=== PATIENT | male | born 2000 | race Caucasian/White ===

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

== ENCOUNTER 2021-01-27 08:32 | Emergency (ER) | payer OTHER, SELFPAY ==
[2021-01-27 08:40] VITALS: BP 127/63; PULSE 56; RESP 16; TEMP 36; O2SAT 99
[2021-01-27 08:42] VITALS: BP 127/63; PULSE 56; RESP 16; TEMP 36; O2SAT 99
--- NOTE | 2021-01-27 08:46 | ED.ABDPAIN ---
HPI - Abdominal Pain General Chief Complaint: Nausea/Vomiting/Diarrhea Stated Complaint: abd pain Source: patient and RN notes reviewed Limitations: no limitations History of Present Illness HPI narrative: The patient, a nondrinker/occ smoker [inc marijuana ]who has a history of irritable bowel, presents with vomiting with blood. Patient states his GI history is remarkable having seen order entry clerk in the past for irritable bowel, with noncontributory CT scan 2 years ago [generally only diverticulosis]. He was treated with elimination diet, ondansetron and omeprazole which he ran out of. Today, after uneventful night, he has a shorter 1 day history of bloody emesis x2 that was blood-tinged with streaks after vomiting forcefully. He had concurrent associated diarrhea x1, low epigastric cramps; no fever sick family, stool changes[darker/cardroom drawing runner], presyncope/lightheadedness, rectal bleeding. Patient has been vaccinated for Covid, no loss of taste/smell, cough, S OB, wheezing/sneezing, CP; he declines Covid testing, hospital referral this morning. So advised to see PMD in follow-up Related Data Home Medications Medication Instructions Recorded Confirmed cetirizine [Zyrtec] 10 mg PO DAILY 01/27/21 01/27/21 Allergies Allergy/AdvReac Type Severity Reaction Status Date / Time No Known Allergies Allergy Unknown Verified 09/09/19 08:13 Review of Systems Review of Systems: Narrative: General/Constitutional: No weight loss,fever Eyes: N0: Redness,discharge Ears/Nose/Throat: No: Epistaxis,ear discharge Respiratory: Denies: Hemoptysis Gastrointestinal: Reports vomiting; Bleeding-rectal Skin: No Lumps, eruption Neurologic: No Focal Weakness,Sz Hematologic: Denies: Petechiae/Purpura Psychiatric: No: Suicida ideationl All Other Systems: Reviewed and Negative [facility] Past Medical History Medical History (Updated 01/27/21 @ 09:12 by Torres Siu MD) Asthma sport induced History of shoulder fracture Hx of concussion Hx of fracture of wrist Social History Social History Gender identity (if verbalized by the patient): Male Comments At time of signature, agree with nursing past medical, surgical, social and family history. There is no relevant family history pertinent to the presenting complaint Exam Narrative: Exam Narrative: General Appearance: Well appearing, No distress EYE: PERRLA, Conjunctiva clear Ears: External ear normal Nose: Normal nose Mouth/Throat: Normal appearing, Normal lips Neck: Supple Respiratory: Airway patent, No respiratory distress Cardiovascular: RRR Abdomen: Soft, minimally tender epigastrium, No massess, No organomegaly (no rebound/ surgical signs), Hyperactive bowel sounds Musculoskeletal: Full ROM Skin: Warm, Dry Neurological: A&O x3, CN II-X intact Psychiatric: Normal mood, Normal affect Course Vital Signs Vital signs: Vital Signs Temperature 96.8 F L 01/27/21 08:40 Pulse Rate 56 L 01/27/21 08:40 Respiratory Rate 16 01/27/21 08:40 Blood Pressure 127/63 01/27/21 08:40 Pulse Oximetry 99 01/27/21 08:40 Temperature 96.8 F L 01/27/21 08:42 Pulse Rate 56 L 01/27/21 08:42 Respiratory Rate 16 01/27/21 08:42 Blood Pressure 127/63 01/27/21 08:42 Pulse Oximetry 99 01/27/21 08:42 Discharge Plan Discharge Clinical Impression: Symptom of blood in vomit Patient Disposition: Home, Self-Care Condition: Stable Instructions: Hematemesis (ED) Additional Instructions: Advised to go to higher-level care facility to higher level testing if not improved , because for early diagnosis of serious problems [ulcer, appendicitis, etc], clear specific symptoms do not develope until later Prescriptions: New ondansetron HCl [Zofran] 4 mg tablet 4 mg PO BID PRN (Reason: nausea and vomiting) Qty: 10 RF: 3 omeprazole 20 mg capsule,delayed release(DR/EC) 20 mg PO BID Qty:
== END 2021-01-27 09:12 | disposition home or self-care (01) ==
PROVIDERS: Emergency Provider Emergency Medicine
DX: K92.0 Hematemesis (principal); J45.990 Exercise induced bronchospasm
CPT/HCPCS: 99213; G0463

== ENCOUNTER 2024-04-20 17:07 | Emergency (ER) | payer BC, SELFPAY ==
[2024-04-20 17:23] VITALS: BP 141/81; PULSE 68; RESP 16; TEMP 36.8; O2SAT 100
--- NOTE | 2024-04-20 17:57 | ED.GENADULT ---
HPI - General Adult General Chief complaint: Upper Respiratory Infection Stated complaint: vomiting and sinus issues Time Seen by Provider: 04/20/24 17:57 Source: patient Mode of arrival: ambulatory Limitations: no limitations History of Present Illness HPI narrative: 23-year-old male patient presents to the [facility] with complaints of cold symptoms that about Monday this week. Patient states the symptoms got significantly worse last night with body aches, chills and fevers. Patient states he has been having some congestion runny nose, cough. Patient does vape. And patient states this morning he was vomiting but mostly vomiting up mucus. Denies any chest pain or shortness of breath at this time. Denies any abdominal pain. Related Data Home Medications Medication Instructions Recorded Confirmed cetirizine 10 mg tablet (Zyrtec) 10 mg PO DAILY 01/27/21 04/20/24 Allergies Allergy/AdvReac Type Severity Reaction Status Date / Time No Known Allergies Allergy Unknown Verified 04/20/24 17:31 Review of Systems Review of Systems: CONSTITUTIONAL: Positive fever, chills, body aches and sweats. EYES: Denies visual changes, redness, or discharge. ENT: positive rhinorrhea, congestion, denies sore throat, denies otalgia. CARDIOVASCULAR: Denies chest pain, palpitations, or edema. RESPIRATORY: positive cough or dyspnea. GASTROINTESTINAL: Denies abdominal pain, nausea, vomiting, or diarrhea. GENITOURINARY: Denies dysuria or hematuria. SKIN: Denies rash or itching. MUSCULOSKELETAL: Denies back pain, joint pain, or myalgia. NEUROLOGIC: Denies headache, numbness, or weakness. PSYCHIATRIC: Denies anxiety or depression. [facility] Past Medical History Medical History (Updated 04/20/24 @ 18:08 by JIGAR Waggoner) Asthma sport induced History of shoulder fracture Hx of concussion Hx of fracture of wrist Social History Social History Gender identity (if verbalized by the patient): Male Exam Narrative: GENERAL: Well-appearing, well-nourished, and in no acute distress. HEAD: Normocephalic, atraumatic. EYES: PERRLA and EOMI. ENT: Nares with erythema edema noted bilaterally, no rhinorrhea or epistaxis. Mucous membranes moist. posterior pharynx with no erythema, tonsillar enlargement, exudates or lesions present. Bilateral TMs are clear no erythema or foreign bodies the canal. NECK: Supple. No lymphadenopathy CHEST: Clear to auscultation. No respiratory distress. HEART: Regular rate and rhythm. No murmur heard. Normal peripheral pulses. ABDOMEN: Soft, nontender, nondistended, normal active bowel sounds. EXTREMITIES: Normal range of motion. No edema. SKIN: Warm, dry, no rash. NEURO: No focal deficits. Alert and oriented x3. Course Course Level of Care: Express Care Visit Vital Signs Vital signs: Vital Signs Temperature 36.8 C 04/20/24 17:23 Pulse Rate 68 04/20/24 17:23 Respiratory Rate 16 04/20/24 17:23 Blood Pressure 141/81 H 04/20/24 17:23 Pulse Oximetry 100 04/20/24 17:23 Oxygen Delivery Room Air 04/20/24 17:23 Temperature 36.8 C 04/20/24 17:23 Pulse Rate 68 04/20/24 17:23 Respiratory Rate 16 04/20/24 17:23 Blood Pressure 141/81 H 04/20/24 17:23 Pulse Oximetry 100 04/20/24 17:23 Oxygen Delivery Room Air 04/20/24 17:23 Vital signs reviewed. The patient has been informed that they may have pre-hypertension or Hypertension based on a BP reading in the department. I recommend that the patient call the primary care provider listed on their discharge instructions or a physician of their choice this week to arrange follow up for further evaluation of possible pre-hypertension or Hypertension Medical Decision Making MDM Narrative Medical decision making narrative: Discussed with patient that his COVID test and flu both came back negative. Discussed with patient I do believe he has a virus that wi
[2024-04-20 18:00] LABS: EDCOVIDSCREEN Negative (Negative); EDINFLUASCREEN Negative (Negative); EDINFLUBSCREEN Negative (Negative)
== END 2024-04-20 18:10 | disposition home or self-care (01) ==
PROVIDERS: Emergency Provider Nurse Practitioner Family; PCP Physician Assistant
DX: J06.9 Acute upper respiratory infection, unspecified (principal); R05.9 Cough, unspecified; Z20.822 Contact with and (suspected) exposure to COVID-19; J45.990 Exercise induced bronchospasm
CPT/HCPCS: 87426; 87804; 99213; G0463

== ENCOUNTER 2024-08-12 17:51 | Emergency (ER) | payer BC, SELFPAY ==
--- NOTE | ~2024-08-12 | XR_ITS ---
HISTORY: slip on ice COMPARISON: None TECHNIQUE: 4 views of the right ankle were performed FINDINGS: No acute fracture or dislocation. No significant soft tissue swelling. The ankle mortise is preserved. Bone mineralization is age-appropriate. IMPRESSION: Unremarkable radiograph of the right ankle, as detailed above. Reviewed, dictated and finalized at location A. FING PROGRAM MANAGER
--- NOTE | 2024-08-12 17:57 | ED_ITS ---
HPI - Extremity Problem General Chief complaint: Extremity Problem,Nontraumatic Stated complaint: ankle pain Time Seen by Provider: 08/12/24 17:59 Source: patient, RN notes reviewed and old records reviewed Mode of arrival: ambulatory Limitations: no limitations History of Present Illness HPI Narrative: Patient presents with complaints of right ankle pain it has been present for 4 days. He reports that last Monday at work he was sliding around on an icy parking lot, did not fall, but when he got home notice some swelling to the right ankle. Pain is worse in Achilles area. Patient is able to bear weight w ithout difficulty. He reports that he ice the affected ankle and took ibuprofen, minimal relief. Says that over the weekend he rested, but when he went to work today he began having increasing pain again. Denies other injury and trauma. Voices no other concerns or complaints at this time. Related Data Allergies Allergy/AdvReac Type Severity Reaction Status Date / Time No Known Allergies Allergy Unknown Verified 08/12/24 18:14 Review of Systems Review of Systems: All systems reviewed & are unremarkable except as noted in HPI and below Constitutional: Constitutional: Reports no additional constitutional complaints ENT: Reports system reviewed and no additional complaints, except as documented Cardiovascular: Cardiovascular: Reports no additional cardiovascular complaints Respiratory: Respiratory: Reports no additional respiratory complaints Gastrointestinal: Gastrointestinal: Reports no additional gastrointestinal complaints Musculoskeletal: Musculoskeletal: Reports no additional musculoskeletal complaints and Reports as per HPI [facility] Past Medical History Medical History History of shoulder fracture Hx of fracture of wrist Hx of concussion Asthma sport induced Social History Social History Gender identity (if verbalized by the patient): Male Comments At the time of my signature, I reviewed and agree with the nursing past medical, surgical, social, and family history. There is no relevant family history pertinent to the patient complaint. Exam Const: General: cooperative, no acute distress, alert and awake Orientation/consciousness: oriented to person, oriented to place and oriented to time HENMT: Head: normal to inspection Resp: Effort & Inspection: normal respiratory effort and able to speak in complete sentences Auscultation: clear to auscultation bilaterally, no crackles, no rales, no rhonchi and no wheezes Cardio: Palpation: normal PMI Rate: regular rate Rhythm: regular rhythm Heart sounds: S1 normal heart sound present and S2 normal heart sound present Neuro: General: oriented to person, oriented to place and oriented to time Cranial nerves: Yes CN's II-XII intact bilaterally Extrem: Right lower extremity: ankle Details: tenderness Location: of the achilles tendon, no edema, normal ROM and abrasion posterior Psych: Appearance: grossly normal Thought process: Normal thought process present Insight: Good insight present (Psych) Judgement: Good judgement present (Psych) Course Course Level of Care: Express Care Visit Vital Signs Vital signs: Reviewed MDM - Extremity (Nontraumatic) MDM Narrative Medical decision making narrative: patient with no acute finding on x-ray, start steroid burst Discharge instructions reviewed with patient, as well as provided in writing per nursing staff. The instructions also include specific and strict return/GO TO THE ER as well as f/u information. All questions have been answered, and the patient deny any further questions with discharge and discharge plan. Some parts of this dictation were generated by voice recognition software and may contain typographical and/or grammatical inaccuracies. Differential Diagnosis Differential diagnosis: Likely gout and other ( ankle sprain, ankle fracture, Achilles tendon injury) Medical Records Attestation: I reviewed the patient's medical records. Imaging Data Attestation: I personally reviewed and interpreted this imaging study as follows: My impression: no acute findings Radiologist's impression: [place] [id number] XRay Report Signed Patient: Leonardo Remy : 2000 MR#: [id number] Age: 23 Acct:[id number] Loc: [facility] ADM Date: 08/12/24Attending Dr: Ordering Physician: Fiorella Porter FNP Date of Service: 08/12/24 Procedure(s): XR ankle RT min 3V Accession Number(s): [id number] cc: Fiorella Porter FNP; PLANTING MACHINE CREWMAN PHYSICIAN~ HISTORY: slip on ice COMPARISON: None TECHNIQUE: 4 views of the right ankle were performed FINDINGS: No acute fracture or dislocation. No significant soft tissue swelling. The ankle mortise is preserved. Bone mineralization is age-appropriate. IMPRESSION: Unremarkable radiograph of the right ankle, as detailed above. Reviewed, dictated and finalized at location A. ORK SUPPORT SPECIALIST Please be advised this is a medical document. It is intended for [id number] communication. It is written in medical language and may contain unfamiliar abbreviations or verbiage. Medical documents are intended to carry relevant information, facts as evident, and the clinical opinion of the practitioner at the time of the encounter. This report may have been done utilizing a voice recognition system. Attempts have been made to correct errors. However, there may be uncorrected grammatical, spelling, and recognition errors present. The file time of this note does not necessarily represent the time the patient was seen. Dictated By: Anusha Bob MD 08/12/241846 Signed By: <Electronically signed by Anusha Bob MD in [place]> 08/12/241847 Discharge Plan Discharge Clinical Impression: Achilles tendinitis Qualifiers: Laterality: right Qualified Code(s): M76.61 - Achilles tendinitis, right leg Patient Disposition: Home, Self-Care Condition: Stable Instructions: Antibiotic Form, P.R.I.C.E. Treatment (ED) Additional Instructions: take medications as prescribed. Follow-up with primary care provider. Emergency department for new or worse symptoms. Blood pressure very elevated today at 157/81. Normal blood pressure is 120/80. Please discuss this with your primary care Patient Language: Polish Prescriptions: New prednisone 50 mg tablet 50 mg PO DAILY Qty: 5 0RF Follow-up/Referrals: PHYSICIAN,PLANTING MACHINE CREWMAN [Primary Care Provider] - Stand Alone Forms: Work/School Release IP Time of Disposition: 18:54
[2024-08-12 18:01] VITALS: BP 157/81; PULSE 89; RESP 18; TEMP 37.2; O2SAT 100
== END 2024-08-12 18:53 | disposition home or self-care (01) ==
PROVIDERS: Emergency Provider Nurse Practitioner Family; Referring Provider Emergency Medicine
DX: M76.61 Achilles tendinitis, right leg (principal); J45.990 Exercise induced bronchospasm
CPT/HCPCS: 73610; 99213; G0463